=== PATIENT | male | born 1980 | race Caucasian/White ===

== ENCOUNTER → 2020-09-26 15:35 | Outpatient (BNVA) | payer OTHER, SELFPAY | PROVIDERS: Visit Provider Nurse Practitioner | DX: Z00.00 Encounter for general adult medical examination without abnormal findings (principal); Z12.5 Encounter for screening for malignant neoplasm of prostate; G47.33 Obstructive sleep apnea (adult) (pediatric); Z99.89 Dependence on other enabling machines and devices | CPT/HCPCS: 80053; 80061; 85025; G0103 ==

== ENCOUNTER → 2022-02-27 08:07 | Outpatient (BNVA) | payer OTHER, SELFPAY | PROVIDERS: Visit Provider Nurse Practitioner | DX: Z13.6 Encounter for screening for cardiovascular disorders (principal); R53.83 Other fatigue | CPT/HCPCS: 80053; 80061; 84403; 84443; 85025 ==

== ENCOUNTER 2022-10-17 10:51 | Emergency (ER) | payer OTHER, SELFPAY ==
[2022-10-17 11:00] VITALS: BP 154/88; PULSE 79; RESP 15; O2SAT 99; BMI 38.5
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
[2022-10-17 12:09] VITALS: BP 134/87; PULSE 79; RESP 15; O2SAT 99
== END 2022-10-17 12:11 | disposition home or self-care (01) ==
PROVIDERS: Emergency Provider Emergency Medicine; PCP Nurse Practitioner
DX: Z04.1 Encounter for examination and observation following transport accident (principal); V86.55XA Driver of 3- or 4- wheeled all-terrain vehicle (ATV) injured in nontraffic accident, initial encounter
CPT/HCPCS: 73030; 73502; 99283

== ENCOUNTER 2022-10-19 16:04 | Outpatient (CLI) | payer OTHER, SELFPAY ==
--- NOTE | 2022-10-19 17:02 | XR_ITS ---
WS: [id number] XR ribs LT 2V* [id number] REASON FOR EXAM: R07.81 - Pleurodynia FINDINGS: No rib fracture or other focal rib lesion identified. The underlying pleura and lung are unremarkable. XR/XR ribs LT 2V* [id number] IMPRESSION: No acute abnormality.
--- NOTE | 2022-10-19 17:02 | XR_ITS ---
WS: [id number] XR chest 2V* [id number] REASON FOR EXAM: R52 - Pain, unspecified FINDINGS: Normal heart size. Somewhat prominent tortuosity and ectasia of the aortic arch for age. Mediastinum is not widened. Calcified granulomatous disease bilaterally. No active pulmonary parenchymal or pleural disease. Moderate degenerative spondylosis in the lower thoracic spine. XR/XR chest 2V* [id number] IMPRESSION: No acute chest abnormality. Prominent ectasia of the aortic arch. No comparison examination.
== END 2022-10-19 16:05 | disposition home or self-care (01) ==
PROVIDERS: PCP Nurse Practitioner; Visit Provider Nurse Practitioner Family
DX: R07.81 Pleurodynia (principal); R07.89 Other chest pain; V86.99XA Unspecified occupant of other special all-terrain or other off-road motor vehicle injured in nontraffic accident, initial encounter; R05.9 Cough, unspecified; I77.810 Thoracic aortic ectasia
CPT/HCPCS: 71046; 71100

== ENCOUNTER 2022-11-06 10:15 | Outpatient (CLI) | payer OTHER, SELFPAY ==
--- NOTE | 2022-11-06 10:30 | CT_ITS ---
WS: [id number] CTA THORACIC AORTA WITH AND WITHOUT CONTRAST. HISTORY: I77.1 - Stricture of artery TECHNIQUE: CT imaging of the thorax is performed with and without contrast. After noncontrast imaging is performed, CT angiogram is performed during injection of Omnipaque 350; 100 mL IV.. Sagittal and coronal reconstructions, sagittal and coronal MIP imaging is submitted. All CT scans at [facility] use at least one of these dose optimization techniques: automated exposure control; mA and/or k V adjustment per patient size (includes targeted exams where dose is matched to clinical indication); or iterative reconstruction. DLP: 1113.87 mGy.cm COMPARISON: Chest radiograph 10/19/2022. Normal appearance of the thoracic aorta. No aneurysm or dissection. No aortic coarctation. No signifi cant atherosclerotic plaque. Great vessel origins are partially obscured by the incoming contrast anabel us. Pulmonary artery size is normal. Normal size heart. No pericardial or pleural effusions. No adenopathy. Poor inspiration of both lungs due to inspiratory effort. No mass or nodule. There is mild groundglass attenuation which is probabl y due to expiration phase. Hepatic steatosis. No adrenal mass. Prior cholecystectomy. Very small hiatal hernia. Splenic granulom tahir. Spleen is mildly enlarged at 14.3 cm in length. No destructive bone lesions. CT/CT angio chest [id number] IMPRESSION: 1. Normal thoracic aorta. The ectasia noted on the prior chest radiograph is p robably due to poor inspiration and technique. There is no aneurysm, coarctatio n or dissection. 2. Hepatic steatosis and prior cholecystectomy. 3. Mild splenomegaly, 14.3 cm in length.
[2022-11-06] MEDS: iohexol 350 mg/mL 500 mL Btl (per mL) IV (10:45)
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
== END 2022-11-06 10:16 | disposition home or self-care (01) ==
PROVIDERS: PCP Nurse Practitioner; Visit Provider Nurse Practitioner Family
DX: M89.8X1 Other specified disorders of bone, shoulder (principal); M25.512 Pain in left shoulder; M25.612 Stiffness of left shoulder, not elsewhere classified; M25.452 Effusion, left hip; M25.552 Pain in left hip; R29.898 Other symptoms and signs involving the musculoskeletal system; V86.99XA Unspecified occupant of other special all-terrain or other off-road motor vehicle injured in nontraffic accident, initial encounter; K76.0 Fatty (change of) liver, not elsewhere classified; R16.1 Splenomegaly, not elsewhere classified; M25.412 Effusion, left shoulder; R60.0 Localized edema; Z90.49 Acquired absence of other specified parts of digestive tract
CPT/HCPCS: 71275; 73221; 73721; Q9967

== ENCOUNTER → 2024-07-12 08:14 | Outpatient (BNVA) | payer OTHER, SELFPAY | PROVIDERS: PCP Nurse Practitioner; Visit Provider Nurse Practitioner | DX: R79.89 Other specified abnormal findings of blood chemistry (principal) | CPT/HCPCS: 84403 ==